=== PATIENT | male | born 1935 | race Caucasian/White ===

== ENCOUNTER 2021-07-28 09:10 | Outpatient (CLI) | payer MEDICARE ==
[2021-07-28 10:32] LABS: Hemoglobin 12.9 g/dL (13.5-17.5)
[2021-07-28 10:43] LABS: Anion Gap 14 mmol/L (10-20); BUN (Urea Nitrogen) 35 mg/dL (8.4-25.7); Calc. Creatinine Clearance 0 mL/min (70-130); Calcium 9.6 mg/dL (7.8-10.44); Carbon Dioxide 28 mmol/L (23-31); Chloride 101 mmol/L (98-107); Glucose 138 mg/dL (83-110); Potassium 4.6 mmol/L (3.5-5.1); Sodium 138 mmol/L (136-145)
[2021-07-28 17:22] LABS: SARS-CoV-2 PCR by NAA Not Detected (NotDetected)
== END 2021-07-28 09:11 | disposition home or self-care (01) ==
LOC: CSHLAB 09:10
PROVIDERS: ATTEND Otolaryngology Plastic Surgery within the Head & Neck
DX: Z01.818 Encounter for other preprocedural examination (principal); Z20.822 Contact with and (suspected) exposure to COVID-19; R49.0 Dysphonia; L29.9 Pruritus, unspecified
CPT/HCPCS: 80048; 85014; 85018; 93005; 93010; U0003; U0005

== ENCOUNTER 2021-08-02 07:00 | Day surgery (SDC) | payer MEDICARE, OTHER ==
[2021-07-27 16:01] VITALS: BMI 34.7
[~2021-08-02 07:00] MED LIST: Lidocaine 4% Topical Sol 50 ML BOT ONE
[2021-08-02] MEDS ORDERED: Oxymetazoline HCl 0.05% ( 15 ML ) ONE (07:27)
[2021-08-02] MEDS ORDERED: Lidocaine 1% MPF 2 ML VIAL ONE (07:44)
[2021-08-02] MEDS ORDERED: PROPOFOL 40 ML ONE ×2 (08:21)
[2021-08-02] MEDS ORDERED: Midazolam HCl 2 mg/2 ml Vial ONE (08:21)
[2021-08-02] MEDS ORDERED: Ondansetron PF 4 MG/2 ML Vial ONE (08:21)
[2021-08-02] MEDS ORDERED: Fentanyl 100 MCG/2 ML VIAL ONE (08:21)
[2021-08-02] MEDS ORDERED: Dexamethasone 20 MG/5 ML VIAL ONE (08:21)
[2021-08-02] MEDS ORDERED: EPINEPHrine 1 MG/ML AMP ONE (08:21)
[2021-08-02] MEDS ORDERED: PHENYLEPHRINE-NS 100 MCG/ML 10 ML SYRINGE ONE (08:22)
[2021-08-02] MEDS ORDERED: ePHEDrine Sulfate 50 MG/10 ML VIAL ONE (08:22)
[2021-08-02] MEDS ORDERED: Lidocaine 1% PF 5 ML VIAL ONE (08:25)
[2021-08-02] MEDS ORDERED: Glycopyrrolate 0.2 MG/ML 5 ML SYRINGE ONE (09:24)
== END 2021-08-02 11:00 | disposition home or self-care (01) ==
LOC: CSHSDC 07:00
PROVIDERS: ATTEND Otolaryngology Plastic Surgery within the Head & Neck
PROC: 0CBT8ZX Excision of Right Vocal Cord, Via Natural or Artificial Opening Endoscopic, Diagnostic (ICD-10-PCS; principal; 2021-08-02)
DX: C32.0 Malignant neoplasm of glottis (principal); Z79.899 Other long term (current) drug therapy; Z79.84 Long term (current) use of oral hypoglycemic drugs; E11.9 Type 2 diabetes mellitus without complications; E78.5 Hyperlipidemia, unspecified
CPT/HCPCS: 88305; J0171; J1100; J2250; J2405; J2704; J3010